=== PATIENT | female | born 1990 | race Caucasian/White ===

== ENCOUNTER 2017-09-08 11:40 | Inpatient (IN) | payer BC ==
[~2017-09-08] VITALS: Ht 152.4 cm; Wt 79.4 kg
[2017-09-08] MEDS ORDERED: OXYTOCIN/NORMAL SALINE 1,000 ML IV SCH (11:52)
[2017-09-08] MEDS ORDERED: LR 1,000 ML IV SCH (11:52)
[2017-09-08] MEDS ORDERED: LR 1,000 ML IV ONE (11:52)
[2017-09-08] MEDS ORDERED: TERBUTALINE SULFATE 1 MG/ML VIAL SUBCUT ONE (12:00)
[2017-09-08 12:33] LABS: BASOPHILS % (AUTO) 0.1 % (0.0-2.0); EOSINOPHILS # (AUTO) 0.1 K/uL (0.0-0.4); EOSINOPHILS % (AUTO) 0.8 % (0.0-4.0); HEMOGLOBIN 10.6 g/dL (12.0-16.0); LYMPHOCYTES # (AUTO) 1.5 K/uL (1.0-5.5); LYMPHOCYTES % (AUTO) 18.2 % (20.5-51.5); MEAN CORPUSCULAR HEMOGLOBIN 25 pg (27-31); MEAN CORPUSCULAR HGB CONC 33 % (32-36); MEAN CORPUSCULAR VOLUME 75 fL (79.0-98.0); MONOCYTES # (AUTO) 0.6 K/uL (0.0-1.0); MONOCYTES % (AUTO) 7.4 % (1.7-9.3); NEUTROPHILS # (AUTO) 5.9 K/uL (1.8-7.7); NEUTROPHILS % (AUTO) 73.5 % (40.0-70.0); PLATELET COUNT (AUTO) 342 K/uL (130-430); RED BLOOD CELL COUNT(AUTO) 4.26 MIL/uL (4.2-6.2); RED CELL DISTRIBUTION WIDTH 14.3 % (9.0-15.0); WHITE BLOOD COUNT (AUTO) 8.1 K/uL (4.8-10.8)
[2017-09-08] MEDS: NALBUPHINE HCL 10 MG/ML AMP IVP PRN (13:49)
[2017-09-08 19:13] VITALS: BP_SYST 106
[2017-09-09] MEDS ORDERED: DINOPROSTONE 10 MG SUPP VG ONE ×2 (07:45→08:30)
[2017-09-09] MEDS: NALBUPHINE HCL 10 MG/ML AMP IVP PRN (19:19)
[2017-09-10] MEDS ORDERED: CEFAZOLIN 2 GM IVPB PREMIX 50 ML IV ONE ×2 (08:00→11:50)
[2017-09-10] MEDS ORDERED: LR 1,000 ML IV SCH ×2 (11:25→11:44)
[2017-09-10] MEDS ORDERED: MEPERIDINE HCL/PF 25 MG/ML DISP.SYRIN IVP PRN ×2 (11:30)
[2017-09-10] MEDS ORDERED: ONDANSETRON HCL 4 MG/2 ML VIAL IVP PRN (11:30)
[2017-09-10] MEDS ORDERED: KETOROLAC TROMETHAMINE 60 MG/2 ML VIAL IM PRN (11:30)
[2017-09-10] MEDS ORDERED: NALOXONE HCL 0.4 MG/ML AMP (NARCAN) IVP PRN (11:30)
[2017-09-10] MEDS ORDERED: MEPERIDINE HCL/PF 50 MG/ML AMP IVP PRN ×4 (11:30)
[2017-09-10] MEDS ORDERED: MORPHINE SULFATE 10MG/10ML PF AMP SP SCH (11:30)
[2017-09-10] MEDS ORDERED: DIPHENHYDRAMINE INJ 50 MG/ML VIAL IM PRN (11:30)
[2017-09-10] MEDS ORDERED: METOCLOPRAMIDE HCL 10 MG/2 ML VIAL IVP PRN (11:30)
[2017-09-10] MEDS ORDERED: OXYTOCIN/NORMAL SALINE 1,000 ML IV ONE ×2 (11:44→12:13)
[2017-09-10] MEDS ORDERED: ANUSOL 1 EA SUPP.RECT (PREPARATION H) RC PRN (11:45)
[2017-09-10] MEDS ORDERED: SIMETHICONE 80 MG TAB.CHEW PO PRN (11:45)
[2017-09-10] MEDS ORDERED: SENNOSIDES/DOCUSATE SODIUM 1 TAB TABLET(SENOKOT-S) PO PRN (11:45)
[2017-09-10] MEDS ORDERED: RHO(D) IMMUNE GLOBULIN/MALTOSE 1500 UNITS/1.3 ML (WINHRO) IM PRN (11:45)
[2017-09-10] MEDS ORDERED: LANOLIN 7 GM OINT. TP PRN (11:45)
[2017-09-10] MEDS ORDERED: ACETAMINOPHEN 325 MG TABLET PO PRN (11:45)
[2017-09-10] MEDS ORDERED: BISACODYL 10 MG/SUPPOSITORY RC PRN (11:45)
[2017-09-10] MEDS ORDERED: MEASLES,MUMPS&RUBELLA VACC/PF 12500 UNIT/0.5 ML VIAL SUBQ PRN (11:45)
[2017-09-10] MEDS ORDERED: MIDAZOLAM HCL 5 MG/ML VIAL (VERSED) IV ONE (11:50)
[2017-09-10] MEDS ORDERED: OXYTOCIN/NORMAL SALINE 20 UNITS/1,000 ML BAG IV ONE (11:50)
[2017-09-10] MEDS ORDERED: ONDANSETRON HCL 4 MG/2 ML VIAL IVP ONE (11:50)
[2017-09-10] MEDS ORDERED: MORPHINE SULFATE 10MG/10ML PF AMP EP ONE (11:50)
[2017-09-10] MEDS ORDERED: LR 1,000 ML IV.SOLN IV ONE (11:50)
[2017-09-10] MEDS ORDERED: DIPHENHYDRAMINE INJ 50 MG/ML VIAL ONE (11:57)
[2017-09-10 12:07] VITALS: BP_SYST 98
[2017-09-10] MEDS ORDERED: TEMAZEPAM 15 MG CAPSULE PO PRN (21:00)
[2017-09-11] MEDS: OXYCODONE/ACETAMINOPHEN 5-325 TABLET PO PRN ×3 (06:00→18:01)
[2017-09-11] MEDS: IBUPROFEN 600 MG TABLET PO SCH ×4 (06:00→18:01)
[2017-09-11 08:34] LABS: BASOPHILS % (AUTO) 0.2 % (0.0-2.0); EOSINOPHILS # (AUTO) 0.1 K/uL (0.0-0.4); EOSINOPHILS % (AUTO) 1.2 % (0.0-4.0); HEMATOCRIT 24.5 % (36-48); HEMOGLOBIN 7.9 g/dL (12.0-16.0); LYMPHOCYTES # (AUTO) 2.3 K/uL (1.0-5.5); LYMPHOCYTES % (AUTO) 22.9 % (20.5-51.5); MEAN CORPUSCULAR HEMOGLOBIN 24 pg (27-31); MEAN CORPUSCULAR HGB CONC 32 % (32-36); MEAN CORPUSCULAR VOLUME 75 fL (79.0-98.0); MONOCYTES % (AUTO) 10.2 % (1.7-9.3); NEUTROPHILS # (AUTO) 6.5 K/uL (1.8-7.7); NEUTROPHILS % (AUTO) 65.5 % (40.0-70.0); PLATELET COUNT (AUTO) 297 K/uL (130-430); RED BLOOD CELL COUNT(AUTO) 3.27 MIL/uL (4.2-6.2); RED CELL DISTRIBUTION WIDTH 14.3 % (9.0-15.0); WHITE BLOOD COUNT (AUTO) 9.9 K/uL (4.8-10.8)
[2017-09-12] MEDS: OXYCODONE/ACETAMINOPHEN 5-325 TABLET PO PRN ×5 (01:13→21:23)
[2017-09-12] MEDS: IBUPROFEN 600 MG TABLET PO SCH ×4 (07:33→17:51)
[2017-09-12] MEDS: DOCUSATE SODIUM 100 MG CAPSULE PO PRN ×2 (08:23→21:23)
[2017-09-13] MEDS: IBUPROFEN 600 MG TABLET PO SCH ×3 (00:09→11:35)
[2017-09-13] MEDS: OXYCODONE/ACETAMINOPHEN 5-325 TABLET PO PRN ×4 (03:25→15:09)
[2017-09-13] MEDS: DOCUSATE SODIUM 100 MG CAPSULE PO PRN (11:35)
--- NOTE | 2017-09-13 14:22 | NUR ---
COOKER CASING faxed pt's discharge order to HCP/SARIKA/[employer] ([phone]).
== END 2017-09-13 15:40 | disposition home or self-care (01) | DRG 766 ==
LOC: SPU 11:40
PROVIDERS: ADMIT Obstetrics & Gynecology; ATTEND Obstetrics & Gynecology
PROC: 3E0P7VZ Introduction of Hormone into Female Reproductive, Via Natural or Artificial Opening (ICD-10-PCS; 2017-09-08)
PROC: 10D00Z1 Extraction of Products of Conception, Low, Open Approach (ICD-10-PCS; principal; 2017-09-10 10:15)
DX: O24.420 Gestational diabetes mellitus in childbirth, diet controlled (principal); E66.9 Obesity, unspecified; O61.9 Failed induction of labor, unspecified; O99.214 Obesity complicating childbirth; Z68.34 Body mass index [BMI] 34.0-34.9, adult; Z37.0 Single live birth; Z3A.39 39 weeks gestation of pregnancy
CPT/HCPCS: 36415; 81002-TC; 82947-TC; 82962; 85025; 86592; 86886; 86900; 86901; 94760; J0690; J1200; J2250; J2274; J2300; J2405; J2590; J7120

== ENCOUNTER 2018-08-29 10:22 | Inpatient (IN) | payer BC ==
[~2018-08-29] VITALS: Ht 152.4 cm; Wt 83.5 kg
[2018-08-29] MEDS ORDERED: LR 1,000 ML IV ONE (14:02)
[2018-08-29] MEDS ORDERED: CEFAZOLIN 2 GM IVPB PREMIX 50 ML IV ONE ×2 (14:15→17:10)
[2018-08-29 14:36] LABS: COLOR,URINE YELLOW (YELLOW)
[2018-08-29 14:36] LABS: HEMATOCRIT 38.4 % (36-48); HEMOGLOBIN 12.3 g/dL (12.0-16.0); LYMPHOCYTES % (AUTO) 22.8 % (20.5-51.5); MEAN CORPUSCULAR HEMOGLOBIN 25 pg (27-31); MEAN CORPUSCULAR HGB CONC 32 % (32-36); MEAN CORPUSCULAR VOLUME 79 fL (79.0-98.0); NEUTROPHILS % (AUTO) 66.2 % (40.0-70.0); PLATELET COUNT (AUTO) 285 K/uL (130-430); RED BLOOD CELL COUNT(AUTO) 4.89 MIL/uL (4.2-6.2); RED CELL DISTRIBUTION WIDTH 15.3 % (9.0-15.0); WHITE BLOOD COUNT (AUTO) 8.1 K/uL (4.8-10.8)
[2018-08-29 14:37] LABS: BILIRUBIN,URINE NEGATIVE (NEGATIVE); BLOOD, URINE TRACE (NEGATIVE); CLARITY/URINE SLIGHTLY HAZY (CLEAR); GLUCOSE,URINE NEGATIVE (NEGATIVE); KETONES,URINE 1+ (NEGATIVE); LEUKOCYTE ESTERASE ,URINE TRACE (NEGATIVE); NITRITE, URINE NEGATIVE (NEGATIVE); PROTEIN URINE NEGATIVE (NEGATIVE); UROBILINOGEN,URINE 0.2 (0.2-1.0)
[2018-08-29 14:37] LABS: BASOPHILS # (AUTO) 0.1 K/uL (0.0-0.2); BASOPHILS % (AUTO) 0.7 % (0.0-2.0); EOSINOPHILS # (AUTO) 0.1 K/uL (0.0-0.4); EOSINOPHILS % (AUTO) 1.1 % (0.0-4.0); LYMPHOCYTES # (AUTO) 1.9 K/uL (1.0-5.5); MONOCYTES # (AUTO) 0.7 K/uL (0.0-1.0); MONOCYTES % (AUTO) 9.2 % (1.7-9.3); NEUTROPHILS # (AUTO) 5.3 K/uL (1.8-7.7)
[2018-08-29 14:51] LABS: BACTERIA,URINE MODERATE /HPF (None Seen); YEAST,URINE None Seen /HPF (None Seen)
[2018-08-29 14:52] LABS: MUCUS,URINE None Seen /LPF (None Seen); URINE AMORPHOUS PHOSPHATES 1+ /HPF (None Seen)
[2018-08-29] MEDS ORDERED: MORPHINE SULFATE 10MG/10ML PF AMP SP SCH (16:00)
[2018-08-29] MEDS ORDERED: ONDANSETRON HCL 4 MG/2 ML VIAL IVP PRN (16:00)
[2018-08-29] MEDS ORDERED: NALOXONE HCL 0.4 MG/ML AMP (NARCAN) IVP PRN ×2 (16:00)
[2018-08-29] MEDS ORDERED: NALBUPHINE HCL 10 MG/ML AMP IVP PRN (16:00)
[2018-08-29] MEDS ORDERED: KETOROLAC TROMETHAMINE 60 MG/2 ML VIAL IM PRN (16:00)
[2018-08-29] MEDS ORDERED: fentaNYL CITRATE/PF 100 MCG/2 ML AMP IVP PRN ×2 (16:00)
[2018-08-29] MEDS ORDERED: DIPHENHYDRAMINE INJ 50 MG/ML VIAL IVP PRN (16:00)
[2018-08-29] MEDS ORDERED: OXYTOCIN/0.9 % SODIUM CHLORIDE 1,000 ML IV ONE (16:47)
[2018-08-29] MEDS ORDERED: LR 1,000 ML IV SCH (16:47)
[2018-08-29] MEDS ORDERED: SIMETHICONE 80 MG TAB.CHEW PO PRN (17:00)
[2018-08-29] MEDS ORDERED: BISACODYL 10 MG/SUPPOSITORY RC PRN (17:00)
[2018-08-29] MEDS ORDERED: LANOLIN 7 GM OINT. TP PRN (17:00)
[2018-08-29] MEDS ORDERED: DIPH-TET-PERTUS Vaccine 0.5 ML VIAL (ADACEL) I.M. PRN (17:00)
[2018-08-29] MEDS ORDERED: METHYLERGONOVINE MALEATE 0.2 MG TABLET PO PRN (17:00)
[2018-08-29] MEDS ORDERED: ANUSOL 1 EA SUPP.RECT (PREPARATION H) RC PRN (17:00)
[2018-08-29] MEDS ORDERED: RHO(D) IMMUNE GLOBULIN/MALTOSE 1500 UNITS/1.3 ML (WINHRO) IM PRN (17:00)
[2018-08-29] MEDS ORDERED: NS IRRIG SOLN 1000 ML IR ONE (17:10)
[2018-08-29] MEDS ORDERED: MORPHINE SULFATE 10MG/10ML PF AMP ONE (17:10)
[2018-08-29] MEDS ORDERED: LR 1,000 ML IV.SOLN IV ONE (17:10)
[2018-08-29] MEDS ORDERED: BUPIVACAINE /PF 0.75% 10 ML VIAL INJ ONE (17:10)
[2018-08-29] MEDS ORDERED: MIDAZOLAM HCL 5 MG/ML VIAL (VERSED) IV ONE (17:10)
[2018-08-29] MEDS ORDERED: KETOROLAC TROMETHAMINE 30 MG VIAL ONE (17:10)
[2018-08-29] MEDS ORDERED: METHYLERGONOVINE MALEATE 0.2 MG/ML AMP ONE (17:10)
[2018-08-29] MEDS ORDERED: ONDANSETRON HCL 4 MG/2 ML VIAL ONE (17:10)
[2018-08-29 20:26] VITALS: BP_SYST 104
[2018-08-29] MEDS ORDERED: TEMAZEPAM 15 MG CAPSULE PO PRN (21:00)
[2018-08-30 09:03] LABS: BASOPHILS % (AUTO) 0.3 % (0.0-2.0); EOSINOPHILS % (AUTO) 0.7 % (0.0-4.0); HEMATOCRIT 30.5 % (36-48); LYMPHOCYTES # (AUTO) 1.8 K/uL (1.0-5.5); MEAN CORPUSCULAR HEMOGLOBIN 26 pg (27-31); MEAN CORPUSCULAR HGB CONC 33 % (32-36); MEAN CORPUSCULAR VOLUME 80 fL (79.0-98.0); MONOCYTES % (AUTO) 9.7 % (1.7-9.3); NEUTROPHILS # (AUTO) 6.5 K/uL (1.8-7.7); NEUTROPHILS % (AUTO) 70.3 % (40.0-70.0); PLATELET COUNT (AUTO) 248 K/uL (130-430); RED BLOOD CELL COUNT(AUTO) 3.83 MIL/uL (4.2-6.2); RED CELL DISTRIBUTION WIDTH 15.3 % (9.0-15.0); WHITE BLOOD COUNT (AUTO) 9.3 K/uL (4.8-10.8)
[2018-08-30 09:04] LABS: EOSINOPHILS # (AUTO) 0.1 K/uL (0.0-0.4); MONOCYTES # (AUTO) 0.9 K/uL (0.0-1.0)
[2018-08-30] MEDS: IBUPROFEN 600 MG TABLET PO SCH ×2 (12:12→18:06)
[2018-08-30] MEDS: OXYCODONE/ACETAMINOPHEN 5-325 TABLET PO PRN ×4 (13:06→23:33)
[2018-08-31] MEDS: IBUPROFEN 600 MG TABLET PO SCH ×3 (00:20→12:22)
[2018-08-31] MEDS: OXYCODONE/ACETAMINOPHEN 5-325 TABLET PO PRN ×3 (08:02→22:59)
[2018-08-31] MEDS: SENNOSIDES/DOCUSATE SODIUM 1 TAB TABLET(SENOKOT-S) PO PRN (12:23)
[2018-08-31] MEDS ORDERED: ONDANSETRON 4 MG ODT TAB PO PRN (20:30)
[2018-08-31] MEDS ORDERED: ONDANSETRON 4 MG ODT TAB PO ONE (20:30)
[2018-08-31] MEDS ORDERED: ONDANSETRON 4 MG ODT TAB ONE (22:53)
[2018-09-01] MEDS: DOCUSATE SODIUM 100 MG CAPSULE PO PRN ×2 (00:19→09:43)
[2018-09-01] MEDS: IBUPROFEN 600 MG TABLET PO SCH ×2 (00:19→06:07)
[2018-09-01] MEDS: SENNOSIDES/DOCUSATE SODIUM 1 TAB TABLET(SENOKOT-S) PO PRN (09:43)
[2018-09-01] MEDS: OXYCODONE/ACETAMINOPHEN 5-325 TABLET PO PRN (09:43)
== END 2018-09-01 11:15 | disposition home or self-care (01) | DRG 788 ==
LOC: SPU 10:22 → OBSVTOIN 13:55 → SPU 17:32
PROVIDERS: ADMIT Obstetrics & Gynecology; ATTEND Obstetrics & Gynecology
PROC: 10D00Z1 Extraction of Products of Conception, Low, Open Approach (ICD-10-PCS; principal; 2018-08-29 15:30)
DX: O34.211 Maternal care for low transverse scar from previous cesarean delivery (principal); O62.2 Other uterine inertia; Z37.0 Single live birth; Z3A.37 37 weeks gestation of pregnancy
CPT/HCPCS: 36415; 81000-TC; 85025; 86886; 86900; 86901; 87086; 94760; G0378; J0690; J1200; J1885; J2210; J2250; J2274; J2405; J2590; J3490; J7120; Q0162